=== PATIENT | male | born 1950 | race African-American/Black ===

== ENCOUNTER 2021-04-23 12:04 | Emergency (ER) | payer MEDICARE, MEDICAID ==
[~2021-04-23] VITALS: Ht 175.3 cm; Wt 78.0 kg
[2021-04-23] MEDS ORDERED: HYDROCODONE/ACETAMINOPHEN 5/325MG TABLET PO ONE (12:30)
[2021-04-23] MEDS ORDERED: NAPR-677 MT (17:48)
[2021-04-23 18:14] VITALS: BP 146/97
== END 2021-04-23 18:16 | disposition home or self-care (01) ==
LOC: ER 12:04
DX: M54.12 Radiculopathy, cervical region (principal); M54.16 Radiculopathy, lumbar region; I10 Essential (primary) hypertension; E11.9 Type 2 diabetes mellitus without complications; V43.52XA Car driver injured in collision with other type car in traffic accident, initial encounter; Y93.89 Activity, other specified; Y92.488 Other paved roadways as the place of occurrence of the external cause; Y99.8 Other external cause status
CPT/HCPCS: 72128; 72131; 99285